=== PATIENT | female | born 1975 | race Caucasian/White ===

== ENCOUNTER 2018-05-28 11:51 | Observation (INO) ==
[2018-05-28] MEDS ORDERED: Bisacodyl 10 MG Supp RECTAL PRN (17:57)
[2018-05-28] MEDS ORDERED: Acetaminophen 325 MG Tablet PO PRN (17:57)
[2018-05-29] MEDS ORDERED: Dextrose 50% in Water 50 ML Vial IV.PUSH PRN (08:09)
--- NOTE | 2018-05-29 08:09 | P.HP ---
History of Present Illness Primary Care Physician: UNKNOWN Chief Complaint: Chest pain History of Present Illness: 42-year-old female with known history of hypertension, diabetes, asthma who presented to the emergency department for chest pain. Patient states that staged been experiencing chest discomfort located in the right anterior chest over the last few days. She states that it happens intermittently without any warning. He can happen when she is exerting herself and/or is sitting down doing nothing. Patient states that the pain usually is 7/10 on a pain scale described as multiple types of sensation anywhere from sharp stabbing to pressure type sensation. She indicates last for approximately 30 minutes at a time and usually resolves on its own. She states that she had a numbing sensation and tingling sensation moving to her right arm with the chest discomfort and that is why she came to emergency department. Patient denies any nausea, vomiting, diaphoresis, shortness of breath, dyspnea, lightheadedness , dizziness. Patient does have increased risk factors to include hypertension, diabetes, early onset family history, history of tobacco use. Patient denies any previous cardiac workup. Patient has not notified her primary medical doctor of her current symptoms. - Diagnosis (1) Chest pain Review of Systems All other systems reviewed negative except as stated in HPI Cardiovascular: Reports chest pain Neurologic: Reports tingling/numbness/burning sensations (Right arm) PMFSH - History History Provided By: Patient - Medical History Medical History: Medical History (Last Reviewed 05/29/18 @ 07:58 by HUMAIRA Mccabe) Asthma Diabetes HTN (hypertension) - Surgical History Surgical History: Surgical History (Last Reviewed 05/29/18 @ 07:58 by HUMAIRA Mccabe) History of endometrial ablation - Family History Family History: Family History (Last Updated 05/29/18 @ 07:56 by HUMAIRA Mccabe) Father History of myocardial infarction Grandparent History of stroke - Tobacco History Second Hand Smoke Exposure: No Tobacco Use In Past 30 Days: Yes Smoking Status: Current some day smoker Tobacco Type: Cigarettes - Alcohol History How Often Do You Have a Drink Containing Alcohol: 2 to 4 times a month - Substance Use History Substance History: No History of Abuse - Travel History Recent Travel in the [place] Within the Last 8 Weeks: No Recent Travel Out of the Country Within the Last 8 Weeks: No - Immunization History Tetanus Immunization: Unsure Hx Influenza Vaccine This Season: No Medications and Allergies Active Medications: Active Medications Acetaminophen (Tylenol) 650 mg PO Q4H PRN PRN Reason: Headache, fever, pain 1-4 Al Hydroxide/Mg Hydroxide (Milk Of Magnesia Liq) 30 ml PO Q12H PRN PRN Reason: Mild Constipation Bisacodyl (Dulcolax Supp) 10 mg RECTAL DAILY PRN PRN Reason: SEVERE CONSITIPATION Lactulose (Lactulose Liq) 30 ml PO DAILY PRN PRN Reason: SEVERE CONSITIPATION Ondansetron HCl (Zofran Inj) 4 mg IV.PUSH Q6H PRN PRN Reason: NAUSEA OR VOMITING Sennosides (Senokot) 17.2 mg PO Q12H PRN PRN Reason: Moderate Constipation Allergies Allergy/AdvReac Type Severity Reaction Status Date / Time No Known Allergies Allergy Verified 05/28/18 12:26 Home Medications Medication Instructions Recorded Confirmed Type lisinopril 10 mg PO DAILY 05/28/18 05/28/18 History metformin 500 mg PO DAILY 05/28/18 05/28/18 History Exam Vital signs: Vital Signs 05/28/18 23:03 05/29/18 00:00 05/29/18 04:00 Temperature 96.6 F L 97.4 F L 97.6 F Pulse Rate 73 70 50 L Respiratory Rate 16 16 16 Blood Pressure 116/61 115/58 L 128/75 Pulse Oximetry 96 98 98 Intake & Output 05/28/18 05/29/18 05/29/18 18:59 06:59 18:59 Weight 99.4 kg Other: # Voids 1 Weight On Admission 45.087 kg Narrative: GENERAL: Well-developed, well-nourished, in no acute distress. alert and orientated HEENT: Head is normocephalic without any lesions or masses noted. Facial features are symmetric. Eyes: Pupils equal round reactive to light. Extraocular muscles are intact. Conjunctivae were clear. Oropharyngeal: Pharynx without any erythema edema. Tongue is midline without deviation. Buccal mucosa is moist without any masses or lesions NECK: Supple without any masses. Trachea midline no deviation. No JVD, no bruits are appreciated CARDIAC: Regular rhythm, regular rate. S1/S2 are heard. No murmurs gallops or rubs. LUNGS: Clear to auscultation bilaterally. No wheeze, rhonchi or rales. No use of accessory muscles on inspiration or expiration. ABDOMEN: Soft, nontender. Nondistended. Bowel sounds heard in all 4 quadrants. No organomegaly or masses. Negative rebound, negative guarding EXTREMITIES: No edema, pulses are equal bilaterally. No cyanosis or clubbing NEUROLOGY: Mood and affect appear appropriate. Cranial nerves II through XII grossly intact. Muscle strength 5/5 in upper and lower extremities bilaterally. Deep tendon reflexes are 2+ in upper and lower extremities bilaterally. Results - Labs Labs: Laboratory Results - last 24 hr 05/28/18 05/29/18 23:20 05:00 Troponin I Less than 0.02 L Less than 0.02 L Caprini VTE Risk Assessment Caprini VTE Risk Assessment: No/Low Risk (score <= 1) Caprini Risk Assessment Model: Point Value = 1 Point Value = 2 Point Value = 3 Point Value = 5 Age 41-60 Minor surgery BMI > 25 kg/m2 Swollen legs Varicose veins or History of unexplained or recurrent spontaneous Oral contraceptives or hormone replacement Sepsis (< 1 month) Serious lung disease, including pneumonia (< 1 month) Abnormal pulmonary function Acute myocardial infarction Congestive heart failure (< 1 month) History of inflammatory bowel disease Medical patient at bed rest Age 61-74 Arthroscopic surgery Major open surgery (> 45 min) Laparoscopic surgery (> 45 min) Malignancy Confined to bed (> 72 hours) Immobilizing plaster cast Central venous access Age >= 75 History of VTE Family history of VTE Factor V Leiden Prothrombin [id number] Lupus anticoagulant Anticardiolipin antibodies Elevated serum homocysteine Heparin-induced thrombocytopenia Other congenital or acquired thrombophilia Stroke (< 1 month) Elective arthroplasty Hip, pelvis, or leg fracture Acute spinal cord injury (< 1 month) Prophylaxis Regimen: Total Risk Factor Score Risk Level Prophylaxis Regimen 0-1 Low Early ambulation 2 Moderate Order ONE of the following: *Sequential Compression Device (SCD) *Heparin 5000 units SQ BID 3-4 Higher Order ONE of the following medications: *Heparin 5000 units SQ TID *Enoxaparin/Lovenox 40 mg SQ daily (WT < 150 kg, CrCl > 30 mL/min) *Enoxaparin/Lovenox 30 mg SQ daily (WT < 150 kg, CrCl > 10-29 mL/min) *Enoxaparin/Lovenox 30 mg SQ BID (WT < 150 kg, CrCl > 30 mL/min) AND/OR *Sequential Compression Device (SCD) 5 or more Highest Order ONE of the following medications: *Heparin 5000 units SQ TID (Preferred with Epidurals) *Enoxaparin/Lovenox 40 mg SQ daily (WT < 150 kg, CrCl > 30 mL/min) *Enoxaparin/Lovenox 30 mg SQ daily (WT < 150 kg, CrCl > 10-29 mL/min) *Enoxaparin/Lovenox 30 mg SQ BID (WT < 150 kg, CrCl > 30 mL/min) AND *Sequential Compression Device (SCD) Assessment and Plan - Assessment (1) Chest pain Code(s): R07.9 - Chest pain, unspecified Status: Acute - Plan Chest pain, atypical -Patient does have increased risk factors to include hypertension, diabetes, early onset heart disease -Patient has been ruled out for acute coronary event with serial cardiac enzymes that are negative, serial EKG shows sinus bradycardia without any changes -Exercise stress test was performed and indicated no signs of ischemia, low risk -Continue aspirin -Patient was counseled on possible etiologies of her chest discomfort to include cardiac, musculoskeletal, GI, pulmonary. Patient does understand that if stress test is negative that we have ruled out life-threatening condition to include cardiac disease. Patient was notified that she can follow-up with her prior medical doctor to rule out any other etiology. Hypertension -Home medication continued Diabetes -Accu-Cheks with sliding scale insulin DVT prevention -Low risk, early ambulation Discharge Planning: Discharge home in stable condition Activity: Ad soren. Diet: Healthy heart diet Medication per medication reconciliation Follow-up with primary medical doctor in 1 week
[2018-05-29] MEDS ORDERED: Lisinopril 10 MG Tablet PO SCH (09:00)
[2018-05-29 09:01] VITALS: BP 108/57; PULSE 48; RESP 18; TEMP 97.7; O2SAT 99
--- NOTE | 2018-05-29 09:46 | ECG ---
Date Performed: 05/29/2018 Time Performed: 00:29:11 PTAGE: 42 years EKG: SINUS BRADYCARDIA WITH SINUS ARRHYTHMIA BORDERLINE ECG NO PREVIOUS TRACING DOCTOR: Gael Ames Interpretating Date/Time 05/29/2018 09:44:07
[2018-05-29] MEDS ORDERED: Insulin NovoLOG Aspart Correctional Sugar Inj SQ SCH (12:00)
--- NOTE | 2018-05-29 13:00 | TR ---
Date Performed: 05/29/2018 Time Performed: 09:18:28 DOCTOR: Rafa Valdivia DRUG LIST: CLINICAL HISTORY: CHEST PAIN REASON FOR TEST: Chest pain REASON FOR ENDING: Completed Protocol OBSERVATION: Arrhythmia: None Chest Pain: None CONCLUSION: Patient tolerated CICI protocol with Total Exercise Time=6:01 Maximum UK=385 % Max HR Achieved=85.0% Maximum RH=740/85, Testing stopped secondary to goals acheived. Patient reached tar get HR. During peak exercise, patient was asymptomatic, Quick upsloping ST segments, No ST depression s, HR and BP appropriate response to exercise. Recovery period, HR and BP returned to baseline COMMENTS: Patient exercised using the Cici protocol. No electrocardiographic changes were seen to suggest ischemia. Hemodynamic response to exercise was normal. No significant arrhythmia was prese nt.
== END 2018-05-29 10:45 | disposition home or self-care (01) ==
LOC: PH3 11:51 → PHEDDLT 11:51
PROVIDERS: ADMIT Hospitalist; ATTEND Hospitalist